=== PATIENT | female | born 1965 | race Caucasian/White ===

== ENCOUNTER → 2021-01-31 | Outpatient (CLI) | payer OTHER ==
--- NOTE | 2021-01-31 13:28 | CTL ---
EXAMINATION TYPE: CT Low Dose Lung DATE OF EXAM ORDERED: 01/31/2021 HISTORY: Personal history of tobacco use, Z 89.891. Lung cancer screening CT DLP: [address] CTDI: 2.29 mGy Automated exposure control for dose reduction was used. SCREENING VISIT: 1 COMPARISON: None TECHNIQUE: Low dose computed tomography scan was performed through the chest at 1 mm thick sections a nd reconstructed images in multiple planes at 1 mm and [address] DIAGNOSTIC QUALITY: Satisfactory FINDINGS: LUNG NODULES: Present, detailed below: Subpleural right upper lobe nodule measures 3 mm axial image 32 series 6, left upper lobe nodule jeremy ures 2 mm image 61 series 6 LUNGS: COPD: Severity: Mild Fibrosis: Severity: None Lymph nodes: None Other findings: None RIGHT PLEURAL SPACE: Effusion: None Calcification: None Thickening: None Pneumothorax: None LEFT PLEURAL SPACE: Effusion: None Calcification: None Thickening: None Pneumothorax: None HEART: Heart Size: Normal Coronary calcification: Mild Pericardial effusion: None OTHER FINDINGS: Upper abdomen: Unremarkable Bony thorax: Thoracic spondylosis is present, there is a spinal curvature Supraclavicular region: Unremarkable Other: IMPRESSION: Benign CT LUNG RAD AND CT CHEST RECOMMENDATION: Lung-Rad 2 Benign Appearance or Behavior: Continue annual sc reening with LDCT in 12 months. S Modifier (other clinically significant findings):
== END | disposition home or self-care (01) ==
LOC: RADCTMAIN 08:50
PROVIDERS: ATTEND Family Medicine
DX: Z12.2 Encounter for screening for malignant neoplasm of respiratory organs (principal); Z87.891 Personal history of nicotine dependence
CPT/HCPCS: 71271

== ENCOUNTER → 2021-02-14 | Outpatient (CLI) | payer OTHER ==
--- NOTE | 2021-02-20 10:04 | MM ---
Reason for exam: screening (asymptomatic). Last mammogram was performed 4 years and 6 months ago. History: Patient is postmenopausal. Took hormonal contraceptives beginning at age 38. Physical Findings: A clinical breast exam by your physician is recommended on an annual basis and results should be correlated with mammographic findings. MG Screening Mammo w CAD Bilateral CC and MLO view(s) were taken. Prior study comparison: [place] [facility] [place] [facility] [place] The breast tissue is extremely dense which could obscure a lesion on mammography. Finding: There is a typically benign 12 mm obscured round mass located 6 cm from the nipple in the 12 o'clock position of the left breast consistent with 2017 exam, prior measurment 15mm. No significant changes in finding since July 31, 2016 and July 16, 2016. ASSESSMENT: Benign, BI-RAD 2 RECOMMENDATION: Routine screening mammogram of both breasts in 1 year.
== END | disposition home or self-care (01) ==
LOC: RADMAMWWP 07:38
PROVIDERS: ATTEND Family Medicine
DX: Z12.31 Encounter for screening mammogram for malignant neoplasm of breast (principal)
CPT/HCPCS: 77067

== ENCOUNTER → 2021-02-16 | Outpatient (CLI) | payer OTHER ==
--- NOTE | 2021-02-16 09:58 | US ---
EXAMINATION TYPE: US duplex aorta DATE OF EXAM: 02/16/2021 COMPARISON: NONE CLINICAL HISTORY: Z13.6 screening AAA, R10.2 female pelvic pain. EXAM MEASUREMENTS: Abdominal Aorta: Proximal: 2.6cm by 2.2 cm Mid: 1.8cm by 1.8 cm. Distal: 1 1.5 x 1.4 cm Bifurcation: Rt: 0.7cm Lt: 0.9 Aorta successfully visualized through the bifurcation. IMPRESSION: No greater than 3.0 cm AAA.
--- NOTE | 2021-02-16 10:56 | US ---
EXAMINATION TYPE: US pelvic complete DATE OF EXAM: 02/16/2021 COMPARISON: NONE CLINICAL HISTORY: 55-year-old female Z13.6 screening AAA, R10.2 female pelvic pain. History of ablati on in 2007. TECHNIQUE: Transabdominal sonographic images of the pelvis were acquired. Findings: EXAM MEASUREMENTS: Uterus: 6.4 x 2.1 x 4.2 cm Endometrial Stripe: 0.3 cm Right Ovary: 2.7 x 1.4 x 1.3 cm Left Ovary: 2.7 x 1.9 x 1.5 cm 1. Uterus: Anteverted and otherwise wnl 2. Endometrium: wnl 3. Right Ovary: wnl 4. Left Ovary: wnl 5. Bilateral Adnexa: wnl 6. Posterior cul-de-sac: wnl IMPRESSION: Unremarkable transabdominal sonographic examination of the pelvis. Stripe measures 3 mm.
== END | disposition home or self-care (01) ==
LOC: RADUSWWP 07:57
PROVIDERS: ATTEND Family Medicine
DX: Z13.6 Encounter for screening for cardiovascular disorders (principal); I71.4 Abdominal aortic aneurysm, without rupture
CPT/HCPCS: 76856; 93979

== ENCOUNTER → 2024-01-16 | Outpatient (CLI) | payer OTHER ==
[2024-01-16 15:26] LABS: Procalcitonin 0.11 ng/mL (0.02-0.50)
[2024-01-16 17:25] LABS: ALT 33 U/L (8-44); AST 26 U/L (13-35); Albumin 4.7 g/dL (3.8-4.9); Albumin/Globulin Ratio 1.68 Ratio (1.60-3.17); Alkaline Phosphatase 77 U/L (41-126); Blood Urea Nitrogen 12.8 mg/dL (9.0-27.0); Calcium 9.8 mg/dL (8.7-10.3); Carbon Dioxide 21.3 mmol/L (21.6-31.8); Chloride 100 mmol/L (96-109); Globulin 2.8 g/dL (1.6-3.3); Glucose 96 mg/dL (70-110); LDL Cholesterol,Calculated 129.1 mg/dL (0.0-131.0); Potassium 4.7 mmol/L (3.5-5.5); Sodium 135 mmol/L (135-145); T4, Free (Free Thyroxine) 1.19 ng/dL (0.80-1.80); Total Bilirubin 0.3 mg/dL (0.3-1.2); Total Protein 7.5 g/dL (6.2-8.2)
[2024-01-16 17:56] LABS: Follicle Stimulating Hormone 79.4 mIU/mL; Luteinizing Hormone 59.3 mIU/mL
[2024-01-17 00:59] LABS: ACTH 10.2 pg/mL (0.00-45.99)
== END | disposition home or self-care (01) ==
LOC: LABWHC1 08:57
PROVIDERS: ATTEND Nurse Practitioner
CPT/HCPCS: 36415; 80053; 80061; 82024; 82043; 82088; 82306; 82533; 82570; 82671; 83001; 83002; 83036; 84145; 84244; 84270; 84305; 84402; 84403; 84439; 84443; 84480

== ENCOUNTER 2024-01-28 10:08 | Day surgery (SDC) | payer OTHER ==
[2024-01-28 10:43] VITALS: TEMP 97.8
[2024-01-28] MEDS: LACTATED RINGERS 1,000 ML IV SCH (10:51)
[2024-01-28] MEDS: IV FLUID CONTINUATION 1,000 ML IV ONE (10:51)
[2024-01-28] MEDS ORDERED: PROPOFOL 10 MG/ML 20 ML VIAL IV ONE (11:14)
[2024-01-28] MEDS ORDERED: LIDOCAINE 2% (PF) 20 MG/ML 5 ML VIAL ONE (11:14)
--- NOTE | 2024-01-28 11:24 | P.PCN ---
Date of Procedure: 01/28/24 Procedure(s) Performed: BRIEF HISTORY: Patient is a 58-year-old, pleasant, white female was given up endoscopies upon evaluation of chronic persistent epigastric pain. She had an episode of acute GI bleed and was admitted at [facility] in March this year and she underwent an EGD and a colonoscopy and apparently was noted to have some angiodysplasia in the stomach for which she underwent Hemoclip placement. Colonoscopy revealed a 5 to close and hemorrhoids. She is scheduled for an upper endoscopy because of persistent epigastric pain.. PROCEDURE PERFORMED: Esophagogastroduodenoscopy. PREOPERATIVE DIAGNOSIS: Persistent epigastric pain. IV sedation per anesthesia. PROCEDURE: After informed consent was obtained, the patient was brought into the endoscopy unit. IV sedation was administered by Anesthesia under continuous monitoring. Initially the Olympus GIF-140 video endoscope was inserted into the mouth. Esophagus intubated without any difficulty. It was gradually advanced into the stomach and duodenum and carefully examined. The bulb and the second part of the duodenum appeared normal. The scope at this time was withdrawn to the stomach, adequately insufflated with air, and upon careful examination, mucosa of the antrum, body, cardia and the fundus appeared normal. The scope was then withdrawn into the esophagus. Small hiatal hernia noted. The GE junction was located at 39 cm from the incisors. The esophagus appeared normal. There were no erosions or ulcerations seen and the patient tolerated the procedure well. IMPRESSION: 1. Small hiatal hernia. 2. No evidence of esophagitis, peptic ulcer disease or angiodysplasia. RECOMMENDATIONS: The findings of this examination were discussed with the patient as well as her family. She was advised to continue with Pepcid 20 mg twice daily and avoid NSAIDs..
[2024-01-28 11:42] VITALS: BP 134/68; PULSE 58; RESP 16
== END 2024-01-28 12:15 | disposition home or self-care (01) ==
LOC: ORWHC2ENDO 10:08
PROVIDERS: ATTEND Internal Medicine Gastroenterology
DX: K44.9 Diaphragmatic hernia without obstruction or gangrene (principal); I10 Essential (primary) hypertension; J44.9 Chronic obstructive pulmonary disease, unspecified; F17.210 Nicotine dependence, cigarettes, uncomplicated; M19.90 Unspecified osteoarthritis, unspecified site; K21.9 Gastro-esophageal reflux disease without esophagitis; Z79.899 Other long term (current) drug therapy; Z79.1 Long term (current) use of non-steroidal anti-inflammatories (NSAID)
CPT/HCPCS: 43235; J2704; J2003

== ENCOUNTER 2024-07-16 20:36 | Emergency (ER) | payer BC ==
[2024-07-16 20:43] VITALS: RESP 18; TEMP 97.8
[2024-07-16 21:15] LABS: Basophils % (A) 0.8 %; Eosinophils % (A) 3.7 %; HCT 34.2 % (37.2-46.3); HGB 11.6 g/dL (12.0-15.0); Lymphocytes # (A) 2.97 10*3/uL (0.90-5.00); Lymphocytes % (A) 30.7 %; MCH 31.6 pg (27.0-32.0); MCHC 33.9 g/dL (32.0-37.0); MCV 93.2 fL (80.0-97.0); Mean Platelet Volume 9.4 fL (9.5-12.2); Monocytes % (A) 10.4 %; Neutrophils # (A) 5.18 10*3/uL (1.80-7.70); Neutrophils % (A) 53.7 %; Platelet Count 340 10*3/uL (140-440); RBC 3.67 10*6/uL (4.10-5.20); RDW 12.9 % (11.5-14.5); WBC 9.67 10*3/uL (4.50-10.00)
[2024-07-16 21:16] LABS: Basophils # (A) 0.08 10*3/uL (0.00-0.10); Eosinophils # (A) 0.36 10*3/uL (0.04-0.35); Monocytes # (A) 1.01 10*3/uL (0.20-1.00)
[2024-07-16 21:26] LABS: ALT 33 U/L (4-34); AST 24 U/L (14-36); African American GFR (CKD) >90 (>60 ml/min/1.73 sqM); Albumin 4.5 g/dL (3.5-5.0); Alkaline Phosphatase 56 U/L (38-126); Anion Gap 15 mmol/L; Blood Urea Nitrogen 12 mg/dL (7-17); Calcium 10.1 mg/dL (8.4-10.2); Carbon Dioxide 18 mmol/L (22-30); Chloride 97 mmol/L (98-107); Glucose 127 mg/dL (74-99); Lipase 224 U/L (23-300); Magnesium 1.7 mg/dL (1.6-2.3); Non-African American GFR(CKD) >90 (>60 ml/min/1.73 sqM); Potassium 4.3 mmol/L (3.5-5.1); Sodium 130 mmol/L (137-145); Total Bilirubin 0.3 mg/dL (0.2-1.3); Total Protein 7.3 g/dL (6.3-8.2)
[2024-07-16 21:30] LABS: INR 0.9 (<1.2); Partial Thromboplastin Time 24.4 sec (22.0-30.0); Prothrombin Time 10.2 sec (10.0-12.5)
[2024-07-16] MEDS: SODIUM CHLORIDE 0.9% 500 ML 500 ML IV STA (21:52)
--- NOTE | 2024-07-16 21:54 | ED ---
Chest Pain HPI - General Chief Complaint: Chest Pain Stated Complaint: ELMA Time Seen by Provider: 07/16/24 20:48 Source: patient Mode of arrival: ambulatory Limitations: no limitations - History of Present Illness Initial Comments: 58-year-old female presenting with chief complaint of chest pain. Patient had reconstructive surgery last at [facility]. She reports that today she is having sharp pain on the right lower side of the chest that is worse with deep breaths. She reports that she did smoke some cigarettes today. She thinks this may have caused her pain. She is not feeling short of breath, however she is taking shallow breaths to avoid reproducing the pain. No lower extremity swelling. No fever. No URI-like symptoms. No redness, induration, or discharge around her surgical site. - Related Data Home Medications Medication Instructions Recorded Confirmed Unk Dulcolax 2 tab PO DAILY 01/27/24 01/28/24 Famotidine 20 mg PO BID 01/27/24 01/28/24 Ibuprofen [Advil] 400 - 800 mg PO DIRECTED PRN 01/27/24 01/28/24 Otc Ca 1200/D3 1 tab PO DAILY 01/27/24 01/28/24 Otc Iron Supplement 40 mg PO DAILY 01/27/24 01/28/24 amLODIPine BESYLATE 10 mg PO DAILY 01/27/24 01/28/24 valACYclovir HCL [Valacyclovir] 500 mg PO DAILY 01/27/24 01/28/24 Allergies Allergy/AdvReac Type Severity Reaction Status Date / Time No Known Allergies Allergy Verified 07/16/24 20:43 Review of Systems ROS Statement: Those systems with pertinent positive or pertinent negative responses have been documented in the HPI. ROS Other: All systems not noted in ROS Statement are negative. Past Medical History Past Medical History: Cancer, COPD, GERD/Reflux, GI Bleed, Hypertension, Osteoarthritis (OA) Additional Past Medical History / Comment(s): seasonal allergies- post nasal drip congestion. Murmur. recent breast cancer - with mastectomy no tx. crusty raised area to corner of left eye- to see physician surgeon. 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 J clip for GI bleed. colonoscopy Additional Past Anesthesia/Blood Transfusion Reaction / Comment(s): body temp drops with anesthesia Past Psychological History: Anxiety, Depression Smoking Status: Current every day smoker Past Alcohol Use History: None Reported Past Drug Use History: None Reported - Past Family History Mother Family Medical History: Cancer, Coronary Artery Disease (CAD) Father Family Medical History: Cancer, Coronary Artery Disease (CAD) General Exam Limitations: no limitations General appearance: alert, in no apparent distress Head exam: Present: atraumatic, normocephalic, normal inspection Eye exam: Present: normal appearance, EOMI Neck exam: Present: normal inspection. Absent: meningismus Respiratory exam: Present: normal lung sounds bilaterally. Absent: respiratory distress, wheezes, rales, rhonchi, stridor Cardiovascular Exam: Present: regular rate, normal rhythm, normal heart sounds. Absent: systolic murmur, diastolic murmur, rubs, gallop, clicks Extremities exam: Absent: pedal edema Neurological exam: Present: alert, oriented X3 Psychiatric exam: Present: normal affect, normal mood Skin exam: Present: warm, dry, normal color Course Vital Signs 07/16/24 20:38 Temperature 97.8 F Pulse Rate 74 Respiratory 18 Rate Blood Pressure 178/78 O2 Sat by Pulse 97 Oximetry Chest Pain MDM - MDM EKG shows sinus rhythm ventricular rate 63. LA interval 164. QRS 80. QT 389. QTc 397 Was pt. sent in by a medical professional or institution (, PA, TYPEWRITER ASSEMBLER, urgent care, hospital, or senior care...) When possible be specific @ -No Did you speak to anyone other than the patient for history (EMS, parent, family, police, friend...)? What history was obtained from this source @ -No Did you review nursing and triage notes (agree or disagree)? Why? @ -I reviewed and agree with nursing and triage notes Were old charts reviewed (outside hosp., previous admission, EMS record, old EKG, old radiological studies, urgent care reports/EKG's, senior care records)? Report findings @ -No old charts were reviewed Differential Diagnosis (chest pain, altered mental status, abdominal pain women, abdominal pain men, vaginal bleeding, weakness, fever, dyspnea, syncope, headache, dizziness, GI bleed, back pain, seizure, CVA, palpatations, mental health, musculoskeletal)? @ -MDM Differential Chest Pain: Stable Angina, Unstable Angina, STEMI, NSTEMI Aortic Dissection, Pneumothorax, Musculoskeletal, Esophageal Spasm GERD, Cholecystitis, Pancreatitis, Zosterâ€¦ This is not meant to be an all-inclusive list. EKG interpreted by me (3pts min.). @ -As above X-rays interpreted by me (1pt min.). @ -None done CT interpreted by me (1pt min.). @ -CT shows no acute pulmonary embolism. No acute pulmonary process. No abnormality to account for right-sided pleuritic chest pain U/S interpreted by me (1pt. min.). @ -None done What testing was considered but not performed or refused? (CT, X-rays, U/S, labs )? Why? @ -None What meds were considered but not given or refused? Why? @ -None Did you discuss the management of the patient with other professionals (professionals i.e. , PA, TYPEWRITER ASSEMBLER, lab, RT, psych nurse, psychiatric social worker supervisor, chemical etch operator, teacher, booking police officer, patient case coordinator)? Give summary @ -No Was smoking cessation discussed for >3mins.? @ -No Was critical care preformed (if so, how long)? @ -No Were there social determinants of health that impacted care today? How? (Homelessness, low income, unemployed, alcoholism, drug addiction, transportation, low edu. Level, literacy, decrease access to med. care, halfway, rehab)? @ -No Was there de-escalation of care discussed even if they declined (Discuss DNR or withdrawal of care, Hospice)? DNR status @ -No What co-morbidities impacted this encounter? (DM, HTN, Smoking, COPD, CAD, Cancer, CVA, ARF, Chemo, Hep., AIDS, mental health diagnosis, sleep apnea, morbid obesity)? @ -Hypertension, recent surgery Was patient admitted / discharged? Hospital course, mention meds given and route, prescriptions, significant lab abnormalities, going to OR and other pertinent info. @ -58-year-old female presenting with chief complaint of right sided pleuritic chest pain. This is below the right breast. She had reconstructive surgery last at [facility]. History and physical examination are conducted. Heart and lungs are clear to auscultation. No fever. Incision site is clean and appears without infection. Negative troponin. Lipase is WNL. EKG shows sinus rhythm with no acute ischemic changes. D-dimer is elevated 0.60. CT is negative for pulmonary embolism or other acute process to account for the patient's pain. Pain is more likely chest wall pain in relation to the patient's postop status. She does report that she started wearing a different postop bra instead of the one given to her by her surgeon. I advised her to continue wearing the when given by her surgeon. I offered admission, patient declined stating that she does not feel like this is related to her heart. Advised Motrin and Tylenol. Follow-up with PCP. Report back to ER with any new or worsening symptoms. Discussed return parameters and answered all questions. Patient conveyed verbal understanding and agreed to the plan. I discussed this case in detail with my attending Dr. Lua Undiagnosed new problem with uncertain prognosis? @ -No Drug Therapy requiring intensive monitoring for toxicity (Heparin, Nitro, Insulin, Cardizem)? @ -No Were any procedures done? @ -No Diagnosis/symptom? @ -Chest wall pain Acute, or Chronic, or Acute on Chronic? @ -Acute Uncomplicated (without systemic symptoms) or Complicated (systemic symptoms)? @ -uncomplicated Side effects of treatment? @ -No Exacerbation, Progression, or Severe Exacerbation? @ -No Poses a threat to life or bodily function? How? (Chest pain, [place], [place], pneumonia, PE, COPD, DKA, ARF, appy, cholecystitis, CVA, Diverticulitis, Homicidal, Suicidal, threat to staff... and all critical care pts) @ -Seemingly low likelihood at this time Disposition Clinical Impression: Chest wall pain Disposition: HOME SELF-CARE Condition: Good Instructions (If sedation given, give patient instructions): Chest Pain (ED), Chest Wall Pain (ED) Additional Instructions: Follow-up with your PCP and surgeon. Report back to ER with any new or worsening symptoms. Take Motrin Tylenol as needed for pain control. Is patient prescribed a controlled substance at d/c from ED?: No Referrals: Berta Alvarez MD [Primary Care Provider] - 1-2 days Time of Disposition: 22:59
--- NOTE | 2024-07-16 22:33 | CT ---
EXAMINATION TYPE: CT chest angio for PE DATE OF EXAM: 07/16/2024 10:07 PM COMPARISON: None. CLINICAL INDICATION: Female, 58 years old with history of Right-sided pleuritic chest pain, Right-jodie ed pleuritic chest pain, TECHNIQUE: CT of the chest is performed on a spiral scan at 2 mm thick sections. Study is performed with intravenous contrast timed for evaluation for pulmonary embolism. This will limit additional po rtions of the evaluation. 10mm MIP images reconstructed by the technologist are reviewed on the comp uter in the coronal and sagittal planes. Contrast used:100 ml mL of Isovue 370 with IV Contrast, (none if empty) Oral contrast used: (none if empty) CT DLP: 452 mGycm, Automated exposure control for dose reduction was used. FINDINGS: Persistent thyroid visualized is normal. Bilateral breast prostheses are present No persistent filling defects are evident to suggest an acute pulmonary embolism. No mediastinal or hilar adenopathy enlarged by CT criteria is evident. The ascending aorta diameter at the level of the main pulmonary artery is 2.9 cm. The main pulmonary artery diameter at the bifurcation is 2.5 cm. Lung windows are clear. No significant coronary artery calcifications. Limited CT sections were through the upper abdomen. Minimal thickening of the left adrenal gland is present. A small nonobstructing renal stone not excluded at the upper posterior right kidney IMPRESSION: 1. No acute pulmonary embolism. 2. No acute pulmonary process. 3. No abnormality to account for right sided pleuritic chest pain. [facility], , 07/16/2024 10:30 PM
[2024-07-16] MEDS: ACETAMINOPHEN TAB 325 MG TAB PO STA (23:07)
[2024-07-16] MEDS: IBUPROFEN 600 MG TAB PO STA (23:07)
[2024-07-16 23:40] VITALS: BP 129/65; PULSE 61
== END 2024-07-16 23:54 | disposition home or self-care (01) ==
LOC: EC 20:36
DX: R07.89 Other chest pain (principal); I10 Essential (primary) hypertension; R79.1 Abnormal coagulation profile; F17.210 Nicotine dependence, cigarettes, uncomplicated
CPT/HCPCS: 36415; 93005; 85379; 80053; 83690; 83735; 84484; 85025; 85610; 85730; 71275; 99285; 96360; Q9967

== ENCOUNTER 2024-09-01 17:39 | Inpatient (IN) | payer BC ==
--- NOTE | 2024-09-01 18:01 | ED ---
General Adult HPI - General Source: patient, family, RN notes reviewed Mode of arrival: wheelchair Limitations: no limitations <Eileen Camacho - Last Filed: 09/01/24 17:59> <Chloe Chong - Last Filed: 09/02/24 00:52> - General Stated complaint: joint pain, weakness Time Seen by Provider: 09/01/24 17:59 - History of Present Illness Initial comments: Quick note: 59-year-old female presented to the ER for evaluation of weakness. Patient reports a history of breast cancer and had right breast surgery completed in June at [facility]. She states for the past couple of months she has been having worsening chills, weakness and joint pain. She also reports a history of a "strange strep infection". Patient reports right breast feels tight but was told by surgeon this is typical after surgery. She denies any drainage, redness or nipple discharge. (Eileen Camacho) - Related Data Home Medications Medication Instructions Recorded Confirmed Unk Dulcolax 2 tab PO DAILY 01/27/24 01/28/24 Famotidine 20 mg PO BID 01/27/24 01/28/24 Ibuprofen [Advil] 400 - 800 mg PO DIRECTED PRN 01/27/24 01/28/24 Otc Ca 1200/D3 1 tab PO DAILY 01/27/24 01/28/24 Otc Iron Supplement 40 mg PO DAILY 01/27/24 01/28/24 amLODIPine BESYLATE 10 mg PO DAILY 01/27/24 01/28/24 valACYclovir HCL [Valacyclovir] 500 mg PO DAILY 01/27/24 01/28/24 Allergies Allergy/AdvReac Type Severity Reaction Status Date / Time No Known Allergies Allergy Verified 07/16/24 20:43 Review of Systems ROS Other: All systems not noted in ROS Statement are negative. <Eileen Camacho - Last Filed: 09/01/24 17:59> ROS Other: All systems not noted in ROS Statement are negative. <Chloe Chong - Last Filed: 09/02/24 00:52> ROS Statement: Those systems with pertinent positive or pertinent negative responses have been documented in the HPI. Past Medical History Past Medical History: Cancer, COPD, GERD/Reflux, GI Bleed, Hypertension, Osteoarthritis (OA) Additional Past Medical History / Comment(s): seasonal allergies- post nasal drip congestion. Murmur. recent breast cancer - with mastectomy no tx. crusty raised area to corner of left eye- to see pearl diver. GI bleed 04/12/23 History of Any Multi-Drug Resistant Organisms: None Reported, Other MDRO Date of last positivie culture/infection: 2023 MDRO Source:: right breast- Staph infection Past Surgical History: Breast Surgery Additional Past Surgical History / Comment(s): mastectomy on rt side with tissue blower insulator 03/2023. J clip for GI bleed. colonoscopy Additional Past Anesthesia/Blood Transfusion Reaction / Comment(s): body temp drops with anesthesia Past Psychological History: Anxiety, Depression Smoking Status: Current every day smoker Past Alcohol Use History: None Reported Past Drug Use History: None Reported - Past Family History Mother Family Medical History: Cancer, Coronary Artery Disease (CAD) Father Family Medical History: Cancer, Coronary Artery Disease (CAD) <Eileen Camacho - Last Filed: 09/01/24 17:59> General Exam <Eileen Camacho - Last Filed: 09/01/24 17:59> - General Exam Comments Initial Comments: Visual Physical Exam Vital signs reviewed General: Well-appearing, nontoxic, no acute distress. Head: Normocephalic, atraumatic Eyes: PERRLA, EOMI ENT: Airway patent Chest: Nonlabored breathing Skin: Erythematous rash bilateral upper extremities, normal skin tone Neuro: Alert and oriented 3 Musculoskeletal: No gross abnormalities (Eileen Camacho) Course Vital Signs 09/01/24 09/01/24 09/01/24 17:57 18:27 20:00 Temperature 103.0 F H Pulse Rate 115 H 100 101 H Respiratory 20 16 18 Rate Blood Pressure 171/70 139/86 96/58 O2 Sat by Pulse 99 100 98 Oximetry 09/01/24 09/01/24 09/01/24 20:20 21:00 21:56 Temperature 102.4 F H 99.4 F Pulse Rate 97 Respiratory 18 Rate Blood Pressure 121/57 O2 Sat by Pulse 98 Oximetry 09/02/24 00:30 Temperature 98.2 F Pulse Rate Respiratory Rate Blood Pressure O2 Sat by Pulse Oximetry Medical Decision Making <Eileen Camacho - Last Filed: 09/01/24 17:59> - Lab Data Result diagrams: 09/01/24 18:46 09/01/24 18:46 <Chloe Chong Demetrius - Last Filed: 09/02/24 00:52> - Medical Decision Making I performed the quick note portion of this chart. Electronically signed by Eileen Camacho PA-C (Eileen Camacho) Was pt. sent in by a medical professional or institution (ALEXANDRA Fuller, MEDICAL AUTHORIZATION SPECIALIST, urgent care, hospital, or senior living...) When possible be specific @ -[No] Did you speak to anyone other than the patient for history (EMS, parent, family, police, friend...)? What history was obtained from this source @ -[No] Did you review nursing and triage notes (agree or disagree)? Why? @ -[I reviewed and agree with nursing and triage notes] Were old charts reviewed (outside hosp., previous admission, EMS record, old EKG, old radiological studies, urgent care reports/EKG's, senior living records)? Report findings @ -[No old charts were reviewed] Differential Diagnosis (chest pain, altered mental status, abdominal pain women, abdominal pain men, vaginal bleeding, weakness, fever, dyspnea, syncope, hea dache, dizziness, GI bleed, back pain, seizure, CVA, palpatations, mental health, musculoskeletal)? @ -[not applicable] EKG interpreted by me (3pts min.). @ -Yes and demonstrates sinus tachycardia with a rate of 100. OK interval 148. QRS 81. QTc of 370. No acute ST segment elevations or depressions X-rays interpreted by me (1pt min.). @ -[None done] CT interpreted by me (1pt min.). @ -[None done] U/S interpreted by me (1pt. min.). @ -[None done] What testing was considered but not performed or refused? (CT, X-rays, U/S, labs)? Why? @ -[None] What meds were considered but not given or refused? Why? @ -[None] Did you discuss the management of the patient with other professionals (p rofessionals i.e. ALEXANDRA Fuller, MEDICAL AUTHORIZATION SPECIALIST, lab, RT, psych nurse, child protective services social worker, sustainment logistics analyst, teacher, debt recovery officer, corrections caseworker)? Give summary @ -[No] Was smoking cessation discussed for >3mins.? @ -[No] Was critical care preformed (if so, how long)? @ -[No] Were there social determinants of health that impacted care today? How? (Homelessness, low income, unemployed, alcoholism, drug addiction, transportatio n, low edu. Level, literacy, decrease access to med. care, custodial, rehab)? @ -[No] Was there de-escalation of care discussed even if they declined (Discuss DNR or withdrawal of care, Hospice)? DNR status @ -[No] What co-morbidities impacted this encounter? (DM, HTN, Smoking, COPD, CAD, Cancer, CVA, ARF, Chemo, Hep., AIDS, mental health diagnosis, sleep apnea, morbid obesity)? @ -[None] Was patient admitted / discharged? Hospital course, mention meds given and route, prescriptions, significant lab abnormalities, going to OR and other pertinent info. @ -[hospital course] Source of infection identified at 2245 to be possible pneumonia Undiagnosed new problem with uncertain prognosis? @ -[No] Drug Therapy requiring intensive monitoring for toxicity (Heparin, Nitro, Insulin, Cardizem)? @ -[No] Were any procedures done? @ -[No] Diagnosis/symptom? @ -[default] Acute, or Chronic, or Acute on Chronic? @ -[default] Uncomplicated (without systemic symptoms) or Complicated (systemic symptoms)? @ -[default] Side effects of treatment? @ -[No] Exacerbation, Progression, or Severe Exacerbation? @ -[No] Poses a threat to life or bodily function? How? (Chest pain, [place], [place], pneumonia, PE, COPD, DKA, ARF, appy, cholecystitis, CVA, Diverticulitis, Homicidal, Suicidal, threat to staff... and all critical care pts) @ -[No] (Chloe Chong) - Lab Data Lab Results 09/01/24 09/01/24 09/01/24 Range/Units 18:46 18:46 18:46 WBC 15.32 H (4.50-10.00) 10*3/uL RBC 3.32 L (4.10-5.20) 10*6/uL Hgb 10.6 L (12.0-15.0) g/dL Hct 30.6 L (37.2-46.3) % MCV 92.2 (80.0-97.0) fL MCH 31.9 (27.0-32.0) pg MCHC 34.6 (32.0-37.0) g/dL Plt Count 287 (140-440) 10*3/uL MPV 9.3 L (9.5-12.2) fL Immature Gran % (Auto) 0.5 % Neutrophils % 84.3 % Lymphocytes % 8.2 % Monocytes % 6.2 % Eosinophils % 0.5 % Basophils % 0.3 % Immature Gran # 0.07 H (0.00-0.04) 10*3/uL Neutrophils # 12.93 H (1.80-7.70) 10*3/uL Lymphocytes # 1.26 (0.90-5.00) 10*3/uL Monocytes # 0.95 (0.20-1.00) 10*3/uL Eosinophils # 0.07 (0.04-0.35) 10*3/uL Basophils # 0.04 (0.00-0.10) 10*3/uL Sodium 129 L (137-145) mmol/L Potassium 4.2 (3.5-5.1) mmol/L Chloride 99 (98-107) mmol/L Carbon Dioxide 19 L (22-30) mmol/L Anion Gap 11 mmol/L BUN 14 (7-17) mg/dL Creatinine 0.78 (0.52-1.04) mg/dL Est GFR (CKD-EPI)AfAm >90 (>60 ml/min/1.73 sqM) Est GFR (CKD-EPI)NonAf 83 (>60 ml/min/1.73 sqM) Glucose 104 H (74-99) mg/dL Plasma Lactic Acid Yogesh 1.4 (0.7-2.0) mmol/L Calcium 9.9 (8.4-10.2) mg/dL Total Bilirubin 0.4 (0.2-1.3) mg/dL AST 23 (14-36) U/L ALT 26 (4-34) U/L Alkaline Phosphatase 69 (38-126) U/L Total Protein 7.5 (6.3-8.2) g/dL Albumin 4.7 (3.5-5.0) g/dL Urine Color Urine Appearance (Clear) Urine pH (5.0-8.0) Ur Specific Tracy (1.001-1.035) Urine Protein (Negative) Urine Glucose (UA) (Negative) Urine Ketones (Negative) Urine Blood (Negative) Urine Nitrite (Negative) Urine Bilirubin (Negative) Urine Urobilinogen (<2.0) mg/dL Ur Leukocyte Esterase (Negative) Influenza Type A (PCR) (Not Detectd) Influenza Type B (PCR) (Not Detectd) RSV (PCR) (Not Detectd) SARS-CoV-2 (PCR) (Not Detectd) 09/01/24 09/01/24 Range/Units 19:15 22:09 WBC (4.50-10.00) 10*3/uL RBC (4.10-5.20) 10*6/uL Hgb (12.0-15.0) g/dL Hct (37.2-46.3) % MCV (80.0-97.0) fL MCH (27.0-32.0) pg MCHC (32.0-37.0) g/dL Plt Count (140-440) 10*3/uL MPV (9.5-12.2) fL Immature Gran % (Auto) % Neutrophils % % Lymphocytes % % Monocytes % % Eosinophils % % Basophils % % Immature Gran # (0.00-0.04) 10*3/uL Neutrophils # (1.80-7.70) 10*3/uL Lymphocytes # (0.90-5.00) 10*3/uL Monocytes # (0.20-1.00) 10*3/uL Eosinophils # (0.04-0.35) 10*3/uL Basophils # (0.00-0.10) 10*3/uL Sodium (137-145) mmol/L Potassium (3.5-5.1) mmol/L Chloride (98-107) mmol/L Carbon Dioxide (22-30) mmol/L Anion Gap mmol/L BUN (7-17) mg/dL Creatinine (0.52-1.04) mg/dL Est GFR (CKD-EPI)AfAm (>60 ml/min/1.73 sqM) Est GFR (CKD-EPI)NonAf (>60 ml/min/1.73 sqM) Glucose (74-99) mg/dL Plasma Lactic Acid Yogesh (0.7-2.0) mmol/L Calcium (8.4-10.2) mg/dL Total Bilirubin (0.2-1.3) mg/dL AST (14-36) U/L ALT (4-34) U/L Alkaline Phosphatase (38-126) U/L Total Protein (6.3-8.2) g/dL Albumin (3.5-5.0) g/dL Urine Color Colorless Urine Appearance Clear (Clear) Urine pH 6.5 (5.0-8.0) Ur Specific Tracy 1.004 (1.001-1.035) Urine Protein Negative (Negative) Urine Glucose (UA) Negative (Negative) Urine Ketones Negative (Negative) Urine Blood Negative (Negative) Urine Nitrite Negative (Negative) Urine Bilirubin Negative (Negative) Urine Urobilinogen <2.0 (<2.0) mg/dL Ur Leukocyte Esterase Negative (Negative) Influenza Type A (PCR) Not Detected (Not Detectd) Influenza Type B (PCR) Not Detected (Not Detectd) RSV (PCR) Not Detected (Not Detectd) SARS-CoV-2 (PCR) Not Detected (Not Detectd) Disposition <Eileen Camacho - Last Filed: 09/01/24 17:59> Is patient prescribed a controlled substance at d/c from ED?: No Time of Disposition: 23:56 Decision to Admit Reason: Admit from EC Decision Date: 09/01/24 Decision Time: 23:56 <Chloe Chong - Last Filed: 09/02/24 00:52> Clinical Impression: Pneumonia, Pyrexia, Leukocytosis Disposition: ADMITTED IP TO THIS HOSP Condition: Stable
[2024-09-01] MEDS: ACETAMINOPHEN TAB 500 MG TAB PO STA (18:22)
[2024-09-01 18:54] LABS: Basophils # (A) 0.04 10*3/uL (0.00-0.10); Basophils % (A) 0.3 %; Eosinophils # (A) 0.07 10*3/uL (0.04-0.35); Eosinophils % (A) 0.5 %; HCT 30.6 % (37.2-46.3); HGB 10.6 g/dL (12.0-15.0); Lymphocytes # (A) 1.26 10*3/uL (0.90-5.00); Lymphocytes % (A) 8.2 %; MCH 31.9 pg (27.0-32.0); MCHC 34.6 g/dL (32.0-37.0); MCV 92.2 fL (80.0-97.0); Mean Platelet Volume 9.3 fL (9.5-12.2); Monocytes # (A) 0.95 10*3/uL (0.20-1.00); Monocytes % (A) 6.2 %; Neutrophils # (A) 12.93 10*3/uL (1.80-7.70); Neutrophils % (A) 84.3 %; Platelet Count 287 10*3/uL (140-440); RBC 3.32 10*6/uL (4.10-5.20); RDW 12.8 % (11.5-14.5); WBC 15.32 10*3/uL (4.50-10.00)
[2024-09-01 19:11] LABS: ALT 26 U/L (4-34); AST 23 U/L (14-36); African American GFR (CKD) >90 (>60 ml/min/1.73 sqM); Albumin 4.7 g/dL (3.5-5.0); Alkaline Phosphatase 69 U/L (38-126); Anion Gap 11 mmol/L; Blood Urea Nitrogen 14 mg/dL (7-17); Calcium 9.9 mg/dL (8.4-10.2); Carbon Dioxide 19 mmol/L (22-30); Chloride 99 mmol/L (98-107); Glucose 104 mg/dL (74-99); Non-African American GFR(CKD) 83 (>60 ml/min/1.73 sqM); Potassium 4.2 mmol/L (3.5-5.1); Sodium 129 mmol/L (137-145); Total Bilirubin 0.4 mg/dL (0.2-1.3); Total Protein 7.5 g/dL (6.3-8.2)
[2024-09-01] MEDS: SODIUM CHLORIDE 0.9% 1,000 ML IV ONE (19:20)
[2024-09-01 20:27] LABS: Influenza A Not Detected (Not Detectd); Influenza B Not Detected (Not Detectd); RSV Not Detected (Not Detectd)
[2024-09-01 22:38] LABS: Appearance,Urine Clear (Clear); Bilirubin,Urine Negative (Negative); Blood,Urine Negative (Negative); Color,Urine Colorless; Glucose,Urine (UA) Negative (Negative); Ketones,Urine Negative (Negative); Leukocyte Esterase,Urine Negative (Negative); Nitrite,Urine Negative (Negative); PH, Urine 6.5 (5.0-8.0); Protein,Urine Negative (Negative); Specific Gravity,Urine 1.004 (1.001-1.035); Urobilinogen,Urine <2.0 mg/dL (<2.0)
--- NOTE | 2024-09-01 22:45 | XR ---
EXAMINATION TYPE: XR chest 2V DATE OF EXAM: 09/01/2024 7:02 PM CLINICAL INDICATION:Female, 59 years old with history of fever; PHH COMPARISON: None. TECHNIQUE: XR chest 2V Frontal view of the chest. FINDINGS: Lungs/Pleura: Patchy hazy airspace opacity is suggested within the right lower lung zone. No pleural effusion or pneumothorax.. Pulmonary vascularity: Unremarkable. Heart/mediastinum: Cardiomediastinal silhouette is unremarkable. Musculoskeletal: No acute osseous pathology. IMPRESSION: Subtle hazy/patchy airspace disease within the right lower lung may represent pneumonia. Correlate [facility] clinical evaluation. [facility], , 09/01/2024 10:43 PM
[2024-09-01] MEDS: SODIUM CHLORIDE 0.9% 1,000 ML IV SCH (22:57)
[2024-09-01] MEDS ORDERED: NALOXONE 0.4 MG/ML 1 ML VIAL IV PRN (23:56)
[2024-09-01] MEDS ORDERED: PNEUMONIA PROTOCOL UTILIZED 1 EACH MISC PO PRN (23:58)
[2024-09-02] MEDS: LACTATED RINGERS 1,000 ML IV SCH (01:07)
[2024-09-02] MEDS: AZITHROMYCIN 500 MG in SODIUM CHLORIDE 0.9% 250 ML IVPB STA (01:08)
[2024-09-02] MEDS: LACTATED RINGERS 1,000 ML IV ONE (01:08)
--- NOTE | 2024-09-02 01:44 | P.HPIM ---
History of Present Illness H&P Date: 09/02/24 History of present illness; 59-year-old female with PMH of breast cancer s/p mastectomy of right breast in March 2023 and recent surgery in June 2024 at [facility], COPD, PCOS had been maintained on metformin 1000 mg twice daily and spironolactone, hypertension who presents to the ED for evaluation of weakness and couple week history of fever/chills. She states that since about March she feels as though she has not been feeling all that great, however has worsened within the past couple of weeks. She has noticed increased fatigue, and intermittent chills. She states the chills were at their worst over the previous couple of days, where she constantly felt the need to be bundled up, however feels as though they are somewhat better today. She endorses having had a productive c ough with yellowish/clear sputum. She states that she has stopped taking her home medications, and does not have a desire to restart them at this time. She does endorse having previously had a couple of different infections of the right breast following her mastectomy in March 2023, however does not feel as though there is any possible infection of the breast at this time. Labratory review: - WBCs 15.32, hemoglobin 10.6, hematocrit 30.6, platelet 287; sodium 129, potassium 4.2, bicarb 19, BUN 14, creatinine 0.78, lactic acid 1.4, calcium 9.9, total bilirubin 0.4, AST 23, ALT 26, alkaline phosphatase 69 - Urinalysis unremarkable - Respiratory viral panel all negative Imaging: - Chest x-ray done in the ER shows subtle hazy/patchy airspace disease within the right lower lung which may represent pneumonia - EKG done in the ER showed heart rate of , no ST segment elevation or depres sherron seen, no T-wave inversions seen. Vitals: - On arrival: Temperature 103.0 F, blood pressure 171/70, heart rate 115, respiratory 20, SpO2 99% on room air - Most recently: Temperature 99.4 F, blood pressure 121/57, heart rate 97, respiratory rate 18, SpO2 98% on room air Patient admitted to internal medicine service REVIEW OF SYSTEMS: Pertinent positives and negatives noted in HPI. The rest of the 14-point review of systems is negative. Physical Exam: General: nontoxic, no distress, appears at stated age Derm: warm, dry, intact Head: atraumatic, normocephalic, symmetric Eyes: EOMI, anicteric sclera Mouth: no lip lesion, mucus membranes moist Cardiovascular: S1 S2 reg, no murmur, rubs, or gallops Lungs: Crackles in the bilateral lower lobes Abdominal: soft, non-tender to palpataion, no appreciable organomegaly Extremities: no gross muscle atrophy, no edema, no contractures Neuro: Alert, Oriented, CNII-XII grossly intact, gait normal Psych: well appearing, appropriate affect Assessment and plan 59-year-old female with PMH of breast cancer s/p mastectomy of right breast in March 2023 and recent surgery in June 2024 at [facility], COPD, hypertension who presents to the ED for evaluation of weakness and couple week history of fever/chills. #Sepsis, likely secondary to pneumonia #Acute pyrexia with uncertain cause #leukocytosis - Temperature 103 F, heart rate 115, WBCs 15.32 on arrival - Received 1 dose Zithromax and Rocephin in the ED - Continue with Zithromax 500 mg for total of 2 more doses, and Rocephin 2 g every 24 hours for 4 more doses - Received 1 L NS in the ED, will receive additional 1 L LR bolus in ED - Continue with LR at 130 cc/h - Procalcitonin, blood culture, sputum culture, Legionella antigen/culture order ed, currently pending - Infectious disease consulted, recommendations appreciated #Hyponatremia, hypo- v hypervolemic - Received 1 L NS bolus in ED, will receive additional 1 L LR bolus - Continue with LR at 130 cc/h - Continue to monitor BMP - If sodium level does not improve with additional fluids, consider discontinuing fluids to monitor response #Chronic normocytic anemia - Hemoglobin 10.6 on arrival, most recent Hgb from 07/16/2024 was 11.6 - Continue to monitor CBC - Consider further workup for possible causes of normocytic anemia Chronic conditions: - Patient states she does not take her current home medications, and does not have a desire to continue at this time GI prophylaxis: None DVT prophylaxis: Lovenox 40 mg subcu daily The patient is admitted with an anticipated more than than 2 midnight stay for evaluation of sepsis with probable pneumonia CODE STATUS: Full code Discussed with: Patient Anticipated discharge place: Home Dictation was produced using [employer] dictation software. please excuse any grammatical, word or spelling errors. Jose Mejias MD PGY-1 IM I have seen and evaluated the patient today. I Discussed the case with the resident and agree with the resident's findings I edited the assessment and plan as necessary as documented in the resident's note. 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 sepsis with suspected source in right breast check Breast US switch to vanco and orlinn ID consult obtain records from [facility] topical steroids for rash over bilateral arms Past Medical History Past Medical History: Cancer, COPD, GERD/Reflux, GI Bleed, Hypertension, Osteoarthritis (OA) Additional Past Medical History / Comment(s): seasonal allergies- post nasal drip congestion. Murmur. recent breast cancer - with mastectomy no tx. crusty raised area to corner of left eye- to see satellite dish technician. GI bleed 04/12/23 History of Any Multi-Drug Resistant Organisms: None Reported, Other MDRO Date of last positivie culture/infection: 2023 MDRO Source:: right breast- Staph infection Past Surgical History: Breast Surgery Additional Past Surgical History / Comment(s): mastectomy on rt side with tissue affiliate marketing coordinator 03/2023. J clip for GI bleed. colonoscopy Additional Past Anesthesia/Blood Transfusion Reaction / Comment(s): body temp drops with anesthesia Past Psychological History: Anxiety, Depression Smoking Status: Current every day smoker Past Alcohol Use History: None Reported Past Drug Use History: None Reported - Past Family History Mother Family Medical History: Cancer, Coronary Artery Disease (CAD) Father Family Medical History: Cancer, Coronary Artery Disease (CAD) Medications and Allergies Home Medications Medication Instructions Recorded Confirmed Type Unk Dulcolax 2 tab PO DAILY 01/27/24 01/28/24 History Famotidine 20 mg PO BID 01/27/24 01/28/24 History Ibuprofen [Advil] 400 - 800 mg PO DIRECTED PRN 01/27/24 01/28/24 History Otc Ca 1200/D3 1 tab PO DAILY 01/27/24 01/28/24 History Otc Iron Supplement 40 mg PO DAILY 01/27/24 01/28/24 History amLODIPine BESYLATE 10 mg PO DAILY 11/05/24 11/06/24 History valACYclovir HCL [Valacyclovir] 500 mg PO DAILY 01/27/24 01/28/24 History Allergies Allergy/AdvReac Type Severity Reaction Status Date / Time No Known Allergies Allergy Verified 07/16/24 20:43 Physical Exam Vitals: Vital Signs Temp Pulse Resp BP Pulse Ox 09/02/24 00:30 98.2 F 09/01/24 21:56 99.4 F 09/01/24 21:00 97 18 121/57 98 09/01/24 20:20 102.4 F H 09/01/24 20:00 101 H 18 96/58 98 09/01/24 18:27 100 16 139/86 100 09/01/24 17:57 103.0 F H 115 H 20 171/70 99 Intake and Output 09/01/24 09/01/24 09/02/24 14:59 22:59 06:59 Other: Weight 69.4 kg Results CBC & Chem 7: 09/02/24 04:29 09/02/24 04:29 Labs: Abnormal Lab Results - Last 24 Hours (Table) 09/01/24 09/01/24 Range/Units 18:46 18:46 WBC 15.32 H (4.50-10.00) 10*3/uL RBC 3.32 L (4.10-5.20) 10*6/uL Hgb 10.6 L (12.0-15.0) g/dL Hct 30.6 L (37.2-46.3) % MPV 9.3 L (9.5-12.2) fL Immature Gran # 0.07 H (0.00-0.04) 10*3/uL Neutrophils # 12.93 H (1.80-7.70) 10*3/uL Sodium 129 L (137-145) mmol/L Carbon Dioxide 19 L (22-30) mmol/L Glucose 104 H (74-99) mg/dL
[2024-09-02] MEDS: ACETAMINOPHEN TAB 325 MG TAB PO PRN (02:57)
[2024-09-02] MEDS: IBUPROFEN 400 MG TAB PO PRN (04:47)
[2024-09-02 04:55] LABS: Basophils # (A) 0.06 10*3/uL (0.00-0.10); Basophils % (A) 0.3 %; Eosinophils # (A) 0.02 10*3/uL (0.04-0.35); Eosinophils % (A) 0.1 %; HCT 26.8 % (37.2-46.3); HGB 9.4 g/dL (12.0-15.0); Lymphocytes % (A) 5.5 %; MCH 32.3 pg (27.0-32.0); MCHC 35.1 g/dL (32.0-37.0); MCV 92.1 fL (80.0-97.0); Mean Platelet Volume 9.5 fL (9.5-12.2); Monocytes # (A) 1.28 10*3/uL (0.20-1.00); Monocytes % (A) 5.4 %; Neutrophils # (A) 20.68 10*3/uL (1.80-7.70); Neutrophils % (A) 87.9 %; Platelet Count 253 10*3/uL (140-440); RBC 2.91 10*6/uL (4.10-5.20); WBC 23.54 10*3/uL (4.50-10.00)
[2024-09-02 05:20] LABS: African American GFR (CKD) >90 (>60 ml/min/1.73 sqM); Anion Gap 7 mmol/L; Blood Urea Nitrogen 10 mg/dL (7-17); Calcium 9.1 mg/dL (8.4-10.2); Carbon Dioxide 19 mmol/L (22-30); Chloride 108 mmol/L (98-107); Glucose 102 mg/dL (74-99); Non-African American GFR(CKD) >90 (>60 ml/min/1.73 sqM); Sodium 134 mmol/L (137-145)
[2024-09-02] MEDS ORDERED: VANCOMYCIN IV PER PHARMACY 1 EACH MISC MISCELLANE PRN (06:23)
--- NOTE | 2024-09-02 07:42 | USB ---
Reason for Exam: Clinical finding. Patient History: Menarche at age 11. First Full-Term at age 18. Postmenopausal. Hormonal Contraceptives, starting at age 38. Risk Values: Apple 5 year model risk: 1.0%. NCI Lifetime model risk: 5.3%. Technique: Method: Targeted. Prior Study Comparison: 07/16/2016 Screening Mammogram, [facility]. 07/31/2016 Screening Mammogram, [facility]. 02/14/2021 Bilateral Screening Mammogram, [facility]. Findings: The lower section of the breast of the right breast and the axilla of the right breast were scanned. A ultrasound of the lower half of the right breast and axilla. No solid or cystic masses are identified.. Overall Assessment: Benign, BI-RAD 2 Management: Screening Mammogram of the left breast. A clinical breast exam by your physician is recommended on an annual basis and results should be correlated with mammographic findings. This exam should not preclude additional follow-up of suspicious palpable abnormalities. Results were given to the patient verbally at the time of exam. [facility], , 09/02/2024 7:40 AM. Electronically signed and approved by: Martinez Burger M.D. Radiologis
--- NOTE | 2024-09-02 08:15 | XR ---
EXAMINATION TYPE: XR chest 2V DATE OF EXAM: 09/02/2024 8:10 AM COMPARISON: 09/01/2024 CLINICAL INDICATION: Female, 59 years old with history of pneumonia, TECHNIQUE: XR chest 2V view(s) obtained. FINDINGS: The heart size is normal. The pulmonary vasculature is normal. The lungs are clear. IMPRESSION: 1. No acute pulmonary process. [facility], , 09/02/2024 8:12 AM
[2024-09-02] MEDS: VANCOMYCIN 1,250 MG in SODIUM CHLORIDE 0.9% 250 ML IVPB ONE (08:29)
[2024-09-02] MEDS: PIPERACILLIN-TAZOBACTAM 3.375 GM in SODIUM CHLORIDE 0.9% 100 ML IVPB SCH (08:29)
[2024-09-02] MEDS: ENOXAPARIN 40 MG/0.4 ML SYRINGE SQ SCH (08:30)
[2024-09-02] MEDS ORDERED: AZITHROMYCIN 500 MG TAB PO SCH (09:00)
[2024-09-02] MEDS: VANCOMYCIN 1,250 MG in SODIUM CHLORIDE 0.9% 250 ML IVPB SCH (15:45)
[2024-09-02] MEDS: CEFEPIME 2 GM in SODIUM CHLORIDE 0.9% 100 ML IVPB SCH ×2 (16:15→20:10)
[2024-09-02] MEDS ORDERED: PIPERACILLIN-TAZOBACTAM 3.375 GM in SODIUM CHLORIDE 0.9% 100 ML IVPB SCH (19:00)
[2024-09-03 07:26] LABS: African American GFR (CKD) >90 (>60 ml/min/1.73 sqM); Non-African American GFR(CKD) >90 (>60 ml/min/1.73 sqM)
--- NOTE | 2024-09-03 10:21 | P.CONS ---
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 and did have problem with the Staphylococcus Lugdunenisis infection patient mentioned he recently in June 2024 did have surgery for removal of the tissue timber management technician she still have the implant to the right breast area patient presented to [facility] ER concerning for weakness patient been complaining of worsening symptoms of weakness joint pains and chills she was complaining of the right breast feels tight and did have a mild clicking pain without any radiation patient did have some mild headache but no photophobia or URI symptoms denies any shortness of breath or cough nausea but no vomiting no diarrhea with the symptoms the patient has been evaluated on presentation to the hospital patient did have a temperature of 103 F tempe rature of 101 F this morning patient was not tachycardic hypotensive or hypoxic she did have a white count of 15.32 which is up to 23.54 today creatinine is normal liver enzymes are normal urine has been negative influenza RSV COVID testing has been negative patient did have a chest x-ray last night slight hazy patchy opacity in the right lower lung may represent pneumonia however chest x- ray less than 10 hours done this morning no acute pulmonary process patient is currently being treated with the vancomycin and Zosyn infectious he was consulted for further management of antibiotic therapy Review of Systems Positive point and negatives has been mentioned in the HPI, complete review of systems was performed and all other systems are negative Past Medical History Past Medical History: Cancer, COPD, GERD/Reflux, GI Bleed, Hypertension, Osteoarthritis (OA) Additional Past Medical History / Comment(s): seasonal allergies- post nasal drip congestion. Murmur. recent breast cancer - with mastectomy no tx. crusty raised area to corner of left eye- to see radiology services manager. GI bleed 04/12/23 History of Any Multi-Drug Resistant Organisms: None Reported, Other MDRO Year Discovered:: 2023 MDRO Source:: right breast- Staph infection Past Surgical History: Breast Surgery Additional Past Surgical History / Comment(s): mastectomy on rt side with tissue timber management technician 03/2023. J clip for GI bleed. colonoscopy Additional Past Anesthesia/Blood Transfusion Reaction / Comm: body temp drops with anesthesia Past Psychological History: Anxiety, Depression Smoking Status: Current every day smoker Past Alcohol Use History: None Reported Past Drug Use History: None Reported - Past Family History Mother Family Medical History: Cancer, Coronary Artery Disease (CAD) Father Family Medical History: Cancer, Coronary Artery Disease (CAD) Medications and Allergies Home Medications Medication Instructions Recorded Confirmed Type amLODIPine [Norvasc] 10 mg PO DAILY 09/02/24 09/02/24 History Allergies Allergy/AdvReac Type Severity Reaction Status Date / Time No Known Allergies Allergy Verified 09/02/24 10:27 Physical Exam Vitals: Vital Signs Temp Pulse Pulse Resp BP BP Pulse Ox 09/02/24 11:50 98.4 F 85 18 106/62 98 09/02/24 08:11 99 09/02/24 07:23 98.7 F 75 18 101/61 97 09/02/24 05:30 101 F H 09/02/24 04:48 100 F H 09/02/24 03:02 14 09/02/24 02:53 100 F H 09/02/24 01:55 98.6 F 79 18 103/62 100 09/02/24 01:27 98.1 F 85 18 123/52 99 09/02/24 00:30 98.2 F 09/02/24 00:00 74 16 109/55 96 09/01/24 23:00 78 17 119/60 96 09/01/24 22:00 86 18 131/60 97 09/01/24 21:56 99.4 F 09/01/24 21:00 97 18 121/57 98 09/01/24 20:20 102.4 F H 09/01/24 20:00 101 H 18 96/58 98 09/01/24 18:27 100 16 139/86 100 09/01/24 17:57 103.0 F H 115 H 20 171/70 99 Intake and Output 09/01/24 09/02/24 09/02/24 22:59 06:59 14:59 Other: # Voids 1 1 Weight 69.4 kg 69.4 kg GENERAL DESCRIPTION: Middle-age male lying in bed, no distress. No tachypnea or accessory muscle of respiration use. HEENT: Shows Pallor , no scleral icterus. Oral mucous membrane is dry. No pharyngeal erythema or thrush NECK: Trachea central, no thyromegaly. LUNGS: Unlabored breathing. Decreased breath sound at the base HEART: S1, S2, regular rate and rhythm. No loud murmur ABDOMEN: Soft, no tenderness , guarding or rigidity, no organomegaly EXTREMITIES: No edema of feet. SKIN: Right breast examined with the patient nurse did have swelling redness and mild erythema/warmth no induration NEUROLOGICAL: The patient is awake, alert, oriented x3, mood and affect normal. Results CBC & Chem 7: 09/02/24 04:29 09/03/24 06:54 Labs: Abnormal Lab Results - Last 24 Hours (Table) 09/01/24 09/01/24 09/02/24 Range/Units 18:46 18:46 04:29 WBC 15.32 H 23.54 H (4.50-10.00) 10*3/uL RBC 3.32 L 2.91 L (4.10-5.20) 10*6/uL Hgb 10.6 L 9.4 L (12.0-15.0) g/dL Hct 30.6 L 26.8 L (37.2-46.3) % MCH 32.3 H (27.0-32.0) pg MPV 9.3 L (9.5-12.2) fL Immature Gran # 0.07 H 0.20 H (0.00-0.04) 10*3/uL Neutrophils # 12.93 H 20.68 H (1.80-7.70) 10*3/uL Monocytes # 1.28 H (0.20-1.00) 10*3/uL Eosinophils # 0.02 L (0.04-0.35) 10*3/uL Sodium 129 L (137-145) mmol/L Chloride (98-107) mmol/L Carbon Dioxide 19 L (22-30) mmol/L Glucose 104 H (74-99) mg/dL Procalcitonin (0.02-0.50) ng/mL 09/02/24 09/02/24 Range/Units 04:29 04:29 WBC (4.50-10.00) 10*3/uL RBC (4.10-5.20) 10*6/uL Hgb (12.0-15.0) g/dL Hct (37.2-46.3) % MCH (27.0-32.0) pg MPV (9.5-12.2) fL Immature Gran # (0.00-0.04) 10*3/uL Neutrophils # (1.80-7.70) 10*3/uL Monocytes # (0.20-1.00) 10*3/uL Eosinophils # (0.04-0.35) 10*3/uL Sodium 134 L (137-145) mmol/L Chloride 108 H (98-107) mmol/L Carbon Dioxide 19 L (22-30) mmol/L Glucose 102 H (74-99) mg/dL Procalcitonin 2.97 H (0.02-0.50) ng/mL Assessment and Plan (1) Sepsis Current Visit: Yes Status: Acute Code(s): A41.9 - SEPSIS, UNSPECIFIED ORGANISM SNOMED Code(s): 40137156 (2) Cellulitis of right breast Current Visit: Yes Status: Acute Code(s): N61.0 - MASTITIS WITHOUT ABSCESS SNOMED Code(s): 10894187 Plan: 1patient presented to hospital with sepsis in this patient noted to have fever elevated white count meeting criteria for SIRS/sepsis source is likely right breast cellulitis clinically doubt pneumonia but patient did have minimal respiratory symptoms however chest x-ray reported with no acute process this morning but we will go against pneumonia she did have right breast discomfort along with swelling redness and warmth concerning for cellulitis I did review of her ultrasound with the Dr. Burger and there was no evidence of any fluid that could be aspirated for culture 2-nursing staff to obtain sensitivity on the Staphylococcus Lugdunensis that was grown from the right breast at the [facility] previously 3-will empirically treat with vancomycin however switch Zosyn to cefepime to decrease risk of nephrotoxicity while waiting for the culture to finalize Multiple question concern answered We will follow on clinical condition and cultures to further adjust medication if needed Thank you for this consultation we will follow the patient along with you Dictation was produced using [employer] software. please excuse any grammatical, word or spelling errors. Time with Patient: Greater than 30
[2024-09-03] MEDS: IPRATROPIUM-ALBUTEROL 3 ML NEB INHALATION PRN (10:27)
--- NOTE | 2024-09-03 13:21 | P.PN ---
Subjective Progress Note Date: 09/03/24 Pts fever profile is improving. Still spiking low-grade fevers but overall temperatures and duration of fever has improved. Still complains of pain in the right breast into the axilla, improving. Gen: In NAD, non-toxic HEENT: normocephalic, atraumatic, hearing acuity is intant, mucous membranes moist CVS: perfusing all extremities well, no pitting edema, Respiratory: symmetric chest expansion, no accessory muscle use, GI: soft, NTTP, ND, : no suprapubic tenderness, no CVA tenderness MSK/Derm: Right breast is tender to palpation with erythema, no cyanosis Neuro: CN II-XII intact, no motor weakness, Psych: cooperative, euthymic mood, judgment and insight is intact Hospital course: 59-year-old female with PMH of breast cancer s/p mastectomy of right breast in March 2023 and recent surgery in June 2024 at [facility], COPD, PCOS had been maintained on metformin 1000 mg twice daily and spironolactone, hypertension who presents to the ED for evaluation of weakness and couple week history of fever/chills. Labratory review: - WBCs 15.32, hemoglobin 10.6, hematocrit 30.6, platelet 287; sodium 129, potassium 4.2, bicarb 19, BUN 14, creatinine 0.78, lactic acid 1.4, calcium 9.9, total bilirubin 0.4, AST 23, ALT 26, alkaline phosphatase 69 - Urinalysis unremarkable - Respiratory viral panel all negative Imaging: - Chest x-ray done in the ER shows subtle hazy/patchy airspace disease within the right lower lung which may represent pneumonia - EKG done in the ER showed heart rate of , no ST segment elevation or depression seen, no T-wave inversions seen. Vitals: - On arrival: Temperature 103.0 F, blood pressure 171/70, heart rate 115, respiratory 20, SpO2 99% on room air - Most recently: Temperature 99.4 F, blood pressure 121/57, heart rate 97, respiratory rate 18, SpO2 98% on room air Patient admitted to internal medicine service Assessment and plan 59-year-old female with PMH of breast cancer s/p mastectomy of right breast in March 2023 and recent surgery in June 2024 at [facility], COPD, hypertension who presents to the ED for evaluation of weakness and couple week history of fever/chills. #Sepsis, likely secondary to pneumonia #Acute pyrexia with uncertain cause #leukocytosis - Temperature 103 F, heart rate 115, WBCs 15.32 on arrival - Received 1 dose Zithromax and Rocephin in the ED - Continue patient on vancomycin, cefepime, infectious disease consultation is appreciated - Received 1 L NS in the ED, will receive additional 1 L LR bolus in ED - Continue with LR at 130 cc/h - Legionella is negative #Hyponatremia, hypo- v hypervolemic - Received 1 L NS bolus in ED, will receive additional 1 L LR bolus - Continue with LR at 130 cc/h - Continue to monitor BMP - If sodium level does not improve with additional fluids, consider discontinuing fluids to monitor response #Chronic normocytic anemia - Hemoglobin 10.6 on arrival, most recent Hgb from 07/16/2024 was 11.6 - Continue to monitor CBC - Consider further workup for possible causes of normocytic anemia Chronic conditions: - Patient states she does not take her current home medications, and does not have a desire to continue at this time GI prophylaxis: None DVT prophylaxis: Lovenox 40 mg subcu daily The patient is admitted with an anticipated more than than 2 midnight stay for evaluation of sepsis with probable pneumonia CODE STATUS: Full code Discussed with: Patient Anticipated discharge place: Home Dictation was produced using [employer] dictation software. please excuse any grammatical, word or spelling errors. Objective - Vital Signs Vital signs: Vital Signs Temp 98.6 F 09/03/24 12:14 Pulse 93 09/03/24 12:14 Resp 16 09/03/24 12:14 BP 148/70 09/03/24 12:14 Pulse Ox 100 09/03/24 12:14 FiO2 Intake & Output 09/02/24 09/03/24 09/03/24 18:59 06:59 18:59 Intake Total 1620 Balance 1620 Intake: Oral 1620 Other: Voiding Method Toilet # Voids 1 1 2 - Labs CBC & Chem 7: 09/02/24 04:29 09/03/24 06:54 Labs: Microbiology - Last 24 Hours (Table) 09/02/24 05:40 Gram Stain - Preliminary Sputum Sputum Culture - Preliminary 09/01/24 19:36 Blood Culture - Preliminary Blood
[2024-09-03] MEDS: VANCOMYCIN TROUGH DUE 1 EACH MISC MISCELLANE ONE (15:00)
--- NOTE | 2024-09-03 19:56 | P.PN ---
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 On today's evaluation that is 09/03/2024, the patient did have improvement in her fever pattern with low-grade fever 100.5 this afternoon patient overall feeling better breathing comfortably no chest pain shortness with occasional cough no abdominal pain complaining of some swelling and discomfort to the right breast area but no drainage. Patient did have a creatinine 0.62 no CBC was done today blood sputum cultures currently pending Objective - Vital Signs Vital signs: Vital Signs Temp 98.6 F 09/03/24 12:14 Pulse 93 09/03/24 12:14 Resp 16 09/03/24 12:14 BP 148/70 09/03/24 12:14 Pulse Ox 100 09/03/24 12:14 FiO2 Intake & Output 09/02/24 09/03/24 09/03/24 18:59 06:59 18:59 Intake Total 1620 Balance 1620 Intake: Oral 1620 Other: Voiding Method Toilet # Voids 1 1 2 - Exam GENERAL DESCRIPTION: Middle-age female lying in bed in no distress RESPIRATORY SYSTEM: Unlabored breathing , decreased breath sounds at bases HEART: S1 S2 regular rate and rhythm , ABDOMEN: Soft , no tenderness Right breast did have swelling redness with small area of purulence which was cultured - Labs CBC & Chem 7: 09/02/24 04:29 09/03/24 06:54 Labs: Microbiology - Last 24 Hours (Table) 09/02/24 05:40 Gram Stain - Preliminary Sputum Sputum Culture - Preliminary 09/01/24 19:36 Blood Culture - Preliminary Blood Assessment and Plan (1) Sepsis Current Visit: Yes Status: Acute Code(s): A41.9 - SEPSIS, UNSPECIFIED ORGANISM SNOMED Code(s): 34585689 (2) Cellulitis of right breast Current Visit: Yes Status: Acute Code(s): N61.0 - MASTITIS WITHOUT ABSCESS SNOMED Code(s): 47251894 Plan: 1patient presented to hospital with sepsis in this patient noted to have fever elevated white count meeting criteria for SIRS/sepsis source is likely right breast cellulitis clinically doubt pneumonia but patient did have minimal respiratory symptoms however chest x-ray reported with no acute process this morning but we will go against pneumonia she did have right breast discomfort along with swelling redness and warmth concerning for cellulitis I did review of her ultrasound with the Dr. Burger and there was no evidence of any fluid that could be aspirated for culture 2-nursing staff to obtain sensitivity on the Staphylococcus Lugdunensis that was grown from the right breast at the [facility], which has not been obtained yet 3-there was a evidence of small open area which has been cultured 4-patient has been insisting on going home tomorrow I will simplify her antibiotic therapy to cefazolin 2 g every 8 hour and the patient remains to be afebrile and white count is normal by tomorrow may consider oral Keflex however if new fever or worsening white count she will need to stay in the hospital till her fever resolves and cultures are finalized Dictation was produced using [employer] dictation software. please excuse any grammatical, word or spelling errors. Time with Patient: Less than 30
[2024-09-04 02:24] VITALS: RESP 16
[2024-09-04 08:28] VITALS: BP 146/71; PULSE 76; TEMP 99.7
--- NOTE | 2024-09-04 13:48 | P.DS ---
Providers Date of admission: 09/01/24 23:59 Expected date of discharge: 09/04/24 Attending physician: Sharron Chandler MD Consults: 09/01/24 23:56 Consult Physician Urgent Consulting Provider: Bhupendra Lacey Consult Reason/Comments: leukocytosis, fever, possible pna Do you want consulting provider notified?: Yes Primary care physician: [facility] Course: #Sepsis, likely secondary to pneumonia #Acute pyrexia with uncertain cause #leukocytosis #Hyponatremia, hypo- v hypervolemic #Chronic normocytic anemia Gen: In NAD, non-toxic HEENT: normocephalic, atraumatic, hearing acuity is intant, mucous membranes moist CVS: perfusing all extremities well, no pitting edema, Respiratory: symmetric chest expansion, no accessory muscle use, GI: soft, NTTP, ND, : no suprapubic tenderness, no CVA tenderness MSK/Derm: Right breast is tender to palpation with erythema, no cyanosis Neuro: CN II-XII intact, no motor weakness, Psych: cooperative, euthymic mood, judgment and insight is intact Hospital course: 59-year-old female with PMH of breast cancer s/p mastectomy of right breast in March 2023 and recent surgery in June 2024 at [facility], COPD, PCOS had been maintained on metformin 1000 mg twice daily and spironolactone, hypertension who presents to the ED for evaluation of weakness and couple week history of fever/chills. Labratory review: - WBCs 15.32, hemoglobin 10.6, hematocrit 30.6, platelet 287; sodium 129, potassium 4.2, bicarb 19, BUN 14, creatinine 0.78, lactic acid 1.4, calcium 9.9, total bilirubin 0.4, AST 23, ALT 26, alkaline phosphatase 69 - Urinalysis unremarkable - Respiratory viral panel all negative Imaging: - Chest x-ray done in the ER shows subtle hazy/patchy airspace disease within the right lower lung which may represent pneumonia - EKG done in the ER showed heart rate of , no ST segment elevation or depression seen, no T-wave inversions seen. Vitals: - On arrival: Temperature 103.0 F, blood pressure 171/70, heart rate 115, respiratory 20, SpO2 99% on room air - Most recently: Temperature 99.4 F, blood pressure 121/57, heart rate 97, respiratory rate 18, SpO2 98% on room air Patient admitted to internal medicine service and started on broad spectrum abx. She continues back intermittent fevers, but overall her fever profile did improve. Sepsis infection were felt secondary to mastitis, patient was counseled on removal of plastic implants as well as continuing oral antibiotics and following up with her PCP. She was prescribed cephalexin on discharge. I spent 38 minutes coordinating this discharge Patient Condition at Discharge: Stable Plan - Discharge Summary Discharge Rx Participant: No New Discharge Prescriptions: New Cephalexin [Keflex] 500 mg PO Q6HR 10 Days #40 cap Acetaminophen Tab [Tylenol] 650 mg PO Q6HR PRN tab PRN Reason: Mild Pain Or Fever > 100.5 Continue amLODIPine [Norvasc] 10 mg PO DAILY Discharge Medication List amLODIPine [Norvasc] 10 mg PO DAILY 09/02/24 [History] Acetaminophen Tab [Tylenol] 650 mg PO Q6HR PRN tab 09/04/24 [Rx] Cephalexin [Keflex] 500 mg PO Q6HR 10 Days #40 cap 09/04/24 [Rx] Follow up Appointment(s)/Referral(s): Berta Alvarez MD [Primary Care Provider] - 1-2 days Bhupendra Lacey MD [STAFF PHYSICIAN] - 1 Week Discharge Disposition: HOME SELF-CARE
--- NOTE | 2024-09-04 14:55 | P.PN ---
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 On today's evaluation that is 09/05/2023, patient did have a temperature of 99.7 F this morning and denies having any chills, patient is on room air and breathing comfortably no chest pain or cough, the patient did not have any nausea vomiting abdominal pain or any diarrhea patient mention overall improvement to the right breast pain and swelling feeling better she refused her blood draw this morning and refusing any further IV wants to go home. No new labs were obtained today cultures obtained from the right breast as well as sputum culture has been negative Objective - Vital Signs Vital signs: Vital Signs Temp 99.7 F H 09/04/24 08:00 Pulse 76 09/04/24 08:00 Resp 16 09/04/24 08:00 BP 146/71 09/04/24 08:00 Pulse Ox 97 09/04/24 08:00 FiO2 Intake & Output 09/03/24 09/04/24 09/04/24 18:59 06:59 18:59 Output Total 50 Balance -50 Output: Urine 50 Other: Voiding Method Toilet # Voids 1 4 - Exam GENERAL DESCRIPTION: Middle-age female lying in bed in no distress RESPIRATORY SYSTEM: Unlabored breathing , decreased breath sounds at bases HEART: S1 S2 regular rate and rhythm , ABDOMEN: Soft , no tenderness Right breast did have swelling redness with small area of purulence which was cultured - Labs CBC & Chem 7: 09/02/24 04:29 09/03/24 06:54 Labs: Microbiology - Last 24 Hours (Table) 09/02/24 05:40 Gram Stain - Final Sputum Sputum Culture - Final 09/01/24 19:36 Blood Culture - Preliminary Blood Assessment and Plan (1) Sepsis Status: Acute Code(s): A41.9 - SEPSIS, UNSPECIFIED ORGANISM SNOMED Code(s): 71797849 (2) Cellulitis of right breast Status: Acute Code(s): N61.0 - MASTITIS WITHOUT ABSCESS SNOMED Code(s): 75 009990 Plan: 1patient presented to hospital with sepsis in this patient noted to have fever elevated white count meeting criteria for SIRS/sepsis source is likely right breast cellulitis clinically doubt pneumonia but patient did have minimal respiratory symptoms however chest x-ray reported with no acute process this morning but we will go against pneumonia she did have right breast discomfort along with swelling redness and warmth concerning for cellulitis I did review of her ultrasound with the Dr. Burger and there was no evidence of any fluid that could be aspirated for culture 2-nursing staff to obtain sensitivity on the Staphylococcus Lugdunensis that was grown from the right breast at the [facility], which has not been obtained yet 3-there was a evidence of small open area which has been cultured 4-patient has been refusing blood draw or any further IV wants to go home we will send a prescription for oral Keflex advised if any recurrence of fever worsening redness to let me know right away also discussed with the admitting physician Dictation was produced using [employer] dictation software. please excuse any grammatical, word or spelling errors. Time with Patient: Less than 30
== END 2024-09-04 14:10 | disposition home or self-care (01) | DRG 871 ==
LOC: EC 17:39 → 4SSUR 23:58 → OBSVTOIN 23:59 → 5NMEDONC 09-02 00:32
PROVIDERS: ADMIT Internal Medicine; ATTEND Internal Medicine
DX: A41.9 Sepsis, unspecified organism (principal); J18.9 Pneumonia, unspecified organism; E87.1 Hypo-osmolality and hyponatremia; J44.0 Chronic obstructive pulmonary disease with (acute) lower respiratory infection; I10 Essential (primary) hypertension; D64.9 Anemia, unspecified; E87.70 Fluid overload, unspecified; Z85.3 Personal history of malignant neoplasm of breast; Z90.11 Acquired absence of right breast and nipple; Z79.84 Long term (current) use of oral hypoglycemic drugs; F17.200 Nicotine dependence, unspecified, uncomplicated; N61.0 Mastitis without abscess; Z79.899 Other long term (current) drug therapy
CPT/HCPCS: 36415; 71046; 80048; 80053; 80202; 81003; 82565; 83605; 84145; 85025; 87040; 87070; 87075; 87205; 87449; 87636; 93005; 94640; 94760; 96361; 96365; 96368; 99285